=== PATIENT | male | born 2000 | race African-American/Black ===

== ENCOUNTER 2023-05-12 13:07 | Emergency (ER) | payer OTHER ==
--- NOTE | 2023-05-12 14:16 | ED ---
Male Urogenital HPI - General Source: patient, RN notes reviewed Mode of arrival: ambulatory Limitations: no limitations - History of Present Illness MD Complaint: other (penile pain) <Nolvia Klein - Last Filed: 05/12/23 14:16> <Victoria Lucas - Last Filed: 05/12/23 18:33> - General Chief complaint: Urogenital Stated complaint: Poss UTI Time Seen by Provider: 05/12/23 14:15 - History of Present Illness Initial comments: This is a 23-year-old male who presents emergency department for penile pain. Patient is concerned about UTIs and STDs and requests testing for both. Denies any external changes to the genitalia, penile discharge, or burning with urination. (Nolvia Klein) I agree with above HPI. Patient has pain in his penile head. He denies fever, chills, nausea, vomiting, testicular pain. Patient had unprotected sex with a new or old female partner on Thursday. He is unsure if she is symptomatic (Victoria Lucas) - Related Data Home Medications Medication Instructions Recorded Confirmed No Known Home Medications 05/12/23 05/12/23 Allergies Allergy/AdvReac Type Severity Reaction Status Date / Time No Known Allergies Allergy Verified 05/12/23 15:55 Review of Systems ROS Other: All systems not noted in ROS Statement are negative. <Nolvia Klein - Last Filed: 05/12/23 14:16> ROS Other: All systems not noted in ROS Statement are negative. <Victoria Lucas - Last Filed: 05/12/23 18:33> ROS Statement: Those systems with pertinent positive or pertinent negative responses have been documented in the HPI. Past Medical History Past Medical History: No Reported History History of Any Multi-Drug Resistant Organisms: None Reported Past Surgical History: No Surgical Hx Reported Past Psychological History: No Psychological Hx Reported Smoking Status: Vaper Past Alcohol Use History: Occasional Past Drug Use History: Marijuana <Nolvia Klein - Last Filed: 05/12/23 14:16> General Exam <Nolvia Klein - Last Filed: 05/12/23 14:16> General appearance: alert, in no apparent distress Respiratory exam: Present: normal lung sounds bilaterally. Absent: respiratory distress, wheezes, rales, rhonchi, stridor Cardiovascular Exam: Present: regular rate, normal rhythm, normal heart sounds. Absent: systolic murmur, diastolic murmur, rubs, gallop, clicks GI/Abdominal exam: Present: soft, normal bowel sounds. Absent: distended, tenderness, guarding, rebound, rigid Neurological exam: Present: alert, oriented X3, CN II-XII intact Psychiatric exam: Present: normal affect, normal mood Skin exam: Present: warm, dry, intact, normal color. Absent: rash <Victoria Lucas - Last Filed: 05/12/23 18:33> - General Exam Comments Initial Comments: Visual Physical Exam Vital signs reviewed General: Well-appearing, nontoxic, no acute distress. Head: Normocephalic, atraumatic Eyes: PERRLA, EOMI ENT: Airway patent Chest: Nonlabored breathing Skin: No visual rash, normal skin tone Neuro: Alert and oriented 3 Musculoskeletal: No gross abnormalities (Vogley,Nolvia) Course Vital Signs 05/12/23 05/12/23 13:27 16:03 Temperature 98.0 F 98.2 F Pulse Rate 82 76 Respiratory 18 16 Rate Blood Pressure 162/98 110/76 O2 Sat by Pulse 100 Oximetry Medical Decision Making <ShayyVictoria - Last Filed: 05/12/23 18:33> - Medical Decision Making Was pt. sent in by a medical professional or institution ([facility], [facility], urgent care, hospital, or longterm...) When possible be specific @ -No Did you speak to anyone other than the patient for history (EMS, parent, family, police, friend...)? What history was obtained from this source @ -No Did you review nursing and triage notes (agree or disagree)? Why? @ -I reviewed and agree with nursing and triage notes Were old charts reviewed (outside hosp., previous admission, EMS record, old EKG, old radiological studies, urgent care reports/EKG's, longterm records)? Report findings @ -No old charts were reviewed Differential Diagnosis (chest pain, altered mental status, abdominal pain women, abdominal pain men, vaginal bleeding, weakness, fever, dyspnea, syncope, headache, dizziness, GI bleed, back pain, seizure, CVA, palpatations, mental health)? @ -UTI, gonorrhea, chlamydia, herpes. This list is not meant to be all- inclusive EKG interpreted by me (3pts min.). @ -As above X-rays interpreted by me (1pt min.). @ -None done CT interpreted by me (1pt min.). @ -None done U/S interpreted by me (1pt. min.). @ -None done What testing was considered but not performed or refused? (CT, X-rays, U/S, labs)? Why? @ -None What meds were considered but not given or refused? Why? @ -None Did you discuss the management of the patient with other professionals (professionals i.e. Dr., PA, [facility], lab, RT, psych nurse, social work case manager, ethnographer, teacher, chief contract officer, social work case manager)? Give summary @ -No Was smoking cessation discussed for >3mins.? @ -No Was critical care preformed (if so, how long)? @ -No Were there social determinants of health that impacted care today? How? (Homelessness, low income, unemployed, alcoholism, drug addiction, transportation, low edu. Level, literacy, decrease access to med. care, care home, rehab)? @ -No Was there de-escalation of care discussed even if they declined (Discuss DNR or withdrawal of care, Hospice)? DNR status @ -No What co-morbidities impacted this encounter? (DM, HTN, Smoking, COPD, CAD, Cancer, CVA, ARF, Chemo, Hep., AIDS, mental health diagnosis, sleep apnea, morbid obesity)? @ -None Was patient admitted / discharged? Hospital course, mention meds given and route, prescriptions, significant lab abnormalities, going to OR and other pertinent info. @ -Patient presenting with penile pain. He declines genital exam. He is nontoxic appearing. Testing performed urinalysis does not reveal infection but does reveal 3+ ketones. Blood sugar is 100. Patient denies history of diabetes. Discussed sexual transmitted infections with patient in detail. Patient would like to wait for results before treatment. Undiagnosed new problem with uncertain prognosis? @ -No Drug Therapy requiring intensive monitoring for toxicity (Heparin, Nitro, I nsulin, Cardizem)? @ -No Were any procedures done? @ -No Diagnosis/symptom? @ -penile pain Acute, or Chronic, or Acute on Chronic? @ -acute Uncomplicated (without systemic symptoms) or Complicated (systemic symptoms)? @ uncomplicated Side effects of treatment? @ -No Exacerbation, Progression, or Severe Exacerbation? @ -No Poses a threat to life or bodily function? How? (Chest pain, USA, SD, pneumonia, PE, COPD, DKA, ARF, appy, cholecystitis, CVA, Diverticulitis, Homicidal, Suicidal, threat to staff... and all critical care pts) @ -No Dr. Uribe is my attending (Victoria Lucas) - Lab Data Lab Results 05/12/23 05/12/23 Range/Units 14:12 15:36 POC Glucose (mg/dL) 100 (70-110) mg/dL POC Glu Box Shook Patcher ID Luis Rayo Urine Color Yellow Urine Appearance Clear (Clear) Urine pH 6.0 (5.0-8.0) Ur Specific [place] 1.028 (1.001-1.035) Urine Protein 1+ H (Negative) Urine Glucose (UA) Negative (Negative) Urine Ketones 3+ H (Negative) Urine Blood Negative (Negative) Urine Nitrite Negative (Negative) Urine Bilirubin Negative (Negative) Urine Urobilinogen 3.0 (<2.0) mg/dL Ur Leukocyte Esterase Negative (Negative) Urine RBC 1 (0-5) /hpf Urine WBC 1 (0-5) /hpf Urine Mucus Many H (None) /hpf Disposition <Nolvia Klein - Last Filed: 05/12/23 14:16> Is patient prescribed a controlled substance at d/c from ED?: No <Victoria Lucas - Last Filed: 05/12/23 18:33> Clinical Impression: Penile pain Disposition: HOME SELF-CARE Condition: Good Instructions (If sedation given, give patient instructions): Sexually Transmitted Diseases (ED), Male Condom Use (ED), Safe Sex Practices (ED) Additional Instructions: Increase water intake. You will find the results on the online portal.If the result is positive you will receive a call and be treated accordingly. Follow- up with PCP in 1-2 days. Return to the ED if you experience new, concerning or worsening symptoms. Referrals: Abisai Bennett MD [Primary Care Provider] - 1-2 days
[2023-05-12 14:55] LABS: Appearance,Urine Clear (Clear); Bilirubin,Urine Negative (Negative); Blood,Urine Negative (Negative); Color,Urine Yellow; Glucose,Urine (UA) Negative (Negative); Ketones,Urine 3+ (Negative); Leukocyte Esterase,Urine Negative (Negative); Mucus,Urine Many /hpf; Nitrite,Urine Negative (Negative); Protein,Urine 1+ (Negative); RBC,Urine 1 /hpf (0-5); Specific Gravity,Urine 1.028 (1.001-1.035); WBC,Urine 1 /hpf (0-5)
[2023-05-12 15:39] LABS: Glucose,Whole Blood 100 mg/dL (70-110)
[2023-05-12 16:06] VITALS: BP 110/76; PULSE 76; RESP 16; TEMP 98.2
[2023-05-13 10:09] LABS: Chlamydia trachomatis rRNA Not detected (Not detected); Neisseria gonorrhoeae rRNA Not detected (Not detected)
[2023-05-13 11:43] LABS: HSV I IgG Interp Negative (Negative); HSV II IgG Interp Negative (Negative)
== END 2023-05-12 16:05 | disposition home or self-care (01) ==
LOC: EC 13:07
DX: N48.89 Other specified disorders of penis (principal); F17.290 Nicotine dependence, other tobacco product, uncomplicated; F12.90 Cannabis use, unspecified, uncomplicated
CPT/HCPCS: 36415; 81001; 86694; 86695; 86696; 87491; 99283